=== PATIENT | male | born 1960 | race Caucasian/White ===

== ENCOUNTER 2018-08-07 17:54 | Observation (INO) | payer MEDICAID ==
[~2018-08-07] VITALS: Ht 175.3 cm; Wt 111.6 kg
--- NOTE | ~2018-08-07 | HEMODYNAMI ---
PATIENT:ABHILASH PEREZ MEDICAL RECORD: [id number] : 62 LOCATION:[facility] [place] D[facility]# [id number] ADMISSION DATE: 08/07/18 Generatedon:08/08/201813:05 Patient name: ABHILASH PEREZ Patient #: [id number] SSN: : 1960 Date of study: 08/08/2018 Page: Of Hemodynamic Procedure Report Patient Data Patient Demographics Procedure consent was obtained First Name: ABHILASH Gender: Male Last Name: CHRIS : 1960 Middle Initial: CASSIDY Age: 58 year(s) Patient #: [id number] Race: Unknown Additional ID: [id number] Contact details [address]: [address] [place] [address] State: [place] City: [place] Zip code: [address] Past Medical History Allergies: No known allergies Admission Admission Data Admission Date: 08/07/2018 Admission Time: 19:25 Admit Source: Other Room #: D.2115 Lab Results Lab Result Date: 08/08/2018 Lab Result Time: 6:00 Biochemistry Name Units Result Min Max BUN mg/dl 14 --(--*-)-- 7 18 Creatinine mg/dl 0.1 *-(----)-- 0.6 1.3 CBC Name Units Result Min Max Hematocrit % 42.5 --(*---)-- 42 54 Hemoglobin g/dl 13.9 --(*---)-- 13.5 17.5 Procedure Procedure Types Cath Procedure Diagnostic Procedure LHC LHC w/Coronaries Peripheral Cath Diagnostic Procedure Bilingual Recruiter Peripheral Procedures 4-Vessel Bilateral Carotid Arteriogram Procedure Description Procedure Date Procedure Date: 08/08/2018 Procedure Start Time: 12:50 Procedure End Time: 12:59 Procedure Staff Name Function Getachew Alcaraz MD Performing Physician Fausto Driscoll RT Monitor Neeraj López RT Scrub Otto Doss RN Nurse Procedure Data Cath Procedure Fluoroscopy Diagnostic fluoroscopy Total fluoroscopy Time: 2 time: 2 min min Diagnostic fluoroscopy Total fluoroscopy dose: 520 dose: 520 mGy mGy Contrast Material Contrast Material Type Amount (ml) Isovue 300 84 Entry Location Entry Primary Successful Side Size Upsize Upsize Entry Closure Succes sful Closure Location (Fr) 1 (Fr) 2 (Fr) Remarks Device Remarks Femoral Right 5 Fr Exoseal artery Estimated blood loss: 5 ml Diagnostic catheters Device Type Used For End Catheter Placement MULTIPACK JL 4.0 5Fr Procedure catheter MULTIPACK 3DRC 5Fr Procedure catheter MULTIPACK Pigtail 5 Fr Procedure catheter Procedure Complications No complications Procedure Medications Medication Administration Route Dosage 0.9% NaCl I.V. 100 ml/hr Oxygen etCO2 Nasal cannula 2 l/min Heparin Flush Bag added to field 2 bags (1000units/500ml NS) Lidocaine 2% added to field 20 Versed I.V. 2 mg Fentanyl I.V. 100 mcg Hemodynamics Rest HGB: 13.9 (g/dl) Heart Rate: 88 (bpm) Pressure Samples Time Site Value (mmHg) Purpose Heart Use Rate(bpm) 12:56 LV 127/11,17 Snapshot 86 12:56 AO 149/70(102) Pullback 82 12:56 LV 127/19,30 Pullback 82 Gradients Valve Time Site 1 Site 2 Mean SEP/DFP Peak To Heart Use (mmHg) (sec/min) Peak Rate (mmHg) (bpm) Aortic 12:56 LV AO 0 14 0 82 127/19,30 149/70(102) Calculations Valve P-P Mean Valve Index Valve Source Name Gradient Area Flow (cm2) Aortic 0 0 0 0 Snapshots Pre Cath Intra NCS Post Cath Vital Signs Time Heart Resp SPO2 etCO2 NIBP (mmHg) Rhythm Pain Sedation Rate (ipm) (%) (mmHg) Status Level (bpm) 12:40:22 84 26 99 39.9 156/99(120) NSR 0 (11) 10(A) , No pain 12:44:41 88 12 96 39.9 151/83(125) NSR 0 (11) 10(A) , No pain 12:48:51 95 15 96 42.9 145/92(120) NSR 0 (11) 10(A) , No pain 12:53:02 91 17 95 0.7 124/85(105) NSR 0 (11) 9(A) , No pain 12:57:14 83 16 96 45.2 142/84(104) NSR 0 (11) 9(A) , No pain Medications Time Medication Route Dose Verified Delivered Reason Notes Eff ectiveness by by 12:43:47 0.9% NaCl I.V. 100 Otto Otto Per ml/hr Selam Doss physician RN RN 12:43:57 Oxygen etCO2 2 Otto Otto for low 02 Nasal l/min Lorigan Lorigan sats cannula RN RN 12:44:08 Heparin Flush added 2 Otto Otto used for Bag to bags Lorigan Selam procedure (1000units/500ml field RN RN NS) 12:44:25 Lidocaine 2% added 20ml Otto Otto for local to vial Lorigan Lorigan anesthetic field RN RN 12:48:22 Versed I.V. 2 mg Otto Otto for Lorigan Lorigan sedation RN RN 12:48:30 Fentanyl I.V. 100 Otto Otto for mcg Lorigan Lorigan sedation RN pet stylist Log Time Note 12:12:47 Informed consent obtained and on chart 12:12:50 Admit Source: Other 12:13:04 Diagnostic Cath status Elective 12:13:06 Time tracking: Regular hours (M-F 7:00 - 5:00) 12:13:11 Plan of Care:Hemodynamics will remain stable., Cardiac rhythm will remain stable., Comfort level will be maintained., Respiratory function will remain adequate., Patient/ family verbilizes understanding of procedure., Procedure tolerated without complication., Recovers from procedure without complications.. 12:13:24 H&P Date Dictated: 08/07/2018 Within 30 days and on chart.. 12:14:57 Lab Result : BUN 14 mg/dl 12:14:57 Lab Result : Hemoglobin 13.9 g/dl 12:14:57 Lab Result : Creatinine 0.1 mg/dl 12:14:57 Lab Result : Hematocrit 42.5 % 12:14:59 Lab results completed and on chart. 12:18:04 Otto Doss RN sent for patient. Start room use. 12:32:39 Patient received from Med II to CCL 1 Alert and oriented. Tansferred to table in Supine position. 12:32:40 Warm blankets applied, and jenn hugger turned on for patient comfort. 12:32:40 Correct patient and procedure confirmed by team. 12:32:41 ECG and BP/O2 sat monitors applied to patient. 12:39:14 Vital chart was started 12:43:47 0.9% NaCl 100 ml/hr I.V. was administered by Otto Doss RN; Per physician; 12:43:57 Oxygen 2 l/min etCO2 Nasal cannula was administered by Otto Doss RN; for low 02 sats; 12:44:08 Heparin Flush Bag (1000units/500ml NS) 2 bags added to field was administered by Otto Doss RN; used for procedure; 12:44:25 Lidocaine 2% 20ml vial added to field was administered by Otto Doss RN; for local anesthetic; 12:46:14 Baseline sample Acquired. 12:46:18 Rhythm: sinus rhythm 12:46:19 Full Disclosure recording started 12:46:21 Pre-procedure instructions explained to patient. 12:46:22 Pre-op teaching completed and patient verbalized understanding. 12:46:24 Family in patients room. 12:46:25 Patient NPO since Midnight. 12:46:30 Patient allergic to No known allergies 12:46:32 Is the patient allergic to Iodine/contrast media? No. 12:46:33 Is patient on blood thinner?No 12:46:34 Patient diabetic? No. 12:46:37 Previous problem with sedation/anesthesia? No ? 12:46:38 Snore? Yes 12:46:39 Sleep apnea? No 12:46:39 Deviated septum? No 12:46:42 Opens mouth fully? Yes 12:46:43 Sticks out tongue? Yes 12:46:45 Airway obstruction? No ? 12:46:46 Dentures? No ? 12:46:49 Pre procedure: right dorsailis pedis pulse 2+ Normal; easily identifiable; not easily obliterated 12:46:51 Patient pain scale 0/10 ?. 12:46:58 IV patent on arrival in right forearm with 0.9% NaCl at [facility]. 12:47:02 Right groin area was prepped with chlora-prep and draped in sterile fashion 12:47:03 Alarms reviewed by R. N. 12:47:03 Sharps counted by scrub and verified by R.N. 12:47:05 Use device set Femoral Dx 12:47:07 ACIST Syringe (72902) opened to sterile field. 12:47:07 Bag Decanter (2001S) opened to sterile field. 12:47:08 Medline Cath Pack ([id number]) opened to sterile field. 12:47:08 ACIST Hand Control (38145) opened to sterile field. 12:47:09 ACIST Manifold (64150) opened to sterile field. 12:47:10 Tegaderm 4 x 4 (1626W) opened to sterile field. 12:47:10 SHEATH 5FR Hinton (NIB120) opened to sterile field. 12:47:12 DIAGNOSTIC Multipack 5Fr catheter set (FW7108) opened to sterile field. 12:47:12 DIAGNOSTIC WIRE .035 260cm J wire (970938) opened to sterile field. 12:47:21 Physician arrived 12:47:21 --------ALL STOP TIME OUT------ 12:47:22 Final Timeout: patient, procedure, and site verified with staff and physician. All members of the team are in agreement. 12:47:23 Right groin site verified by team. 12:47:26 Maximum allowable Isovue 300 dose 300ml. Physician notified. (300ml for normal creatinines. For patients with creatinine of 1.7 or higher multiply weight(kg) x 5 divided by creatinine.) 12:47:34 Fire Safety Assessment: A--An alcohol-based skin anteseptic being used preoperatively., C--Open oxygen or nitrous oxide is being used., D--An ESU, laser, or fiber-optic light is being used. 12:47:36 Physical assessment completed. ASA score P 2 - A patient with mild systemic disease as per Getachew Alcaraz MD. 12:47:39 Sedation plan: IV Moderate Sedation Medication:Versed, Fentanyl 12:48:22 Versed 2 mg I.V. was administered by Otto Doss RN; for sedation; 12:48:30 Fentanyl 100 mcg I.V. was administered by Otto Doss RN; for sedation; 12:50:12 Procedure started. 12:50:14 Local anesthetic to right femoral artery with Lidocaine 2% by Getachew Alcaraz MD.INITIAL ACCESS ONLY 12:50:20 A 5 Fr sheath was inserted into the Right Femoral artery 12:50:26 Zero performed for pressure channel P1 12:50:53 Zero performed for pressure channel P1 12:51:47 A MULTIPACK JL 4.0 5Fr catheter was advanced over the wire and used for Procedure. 12:52:28 Catheter exchanged over wire. 12:52:35 A MULTIPACK 3DRC 5Fr catheter was advanced over the wire and used for Procedure. 12:53:18 RCA angiography performed. 12:53:46 Left carotid angiography performed. 12:53:59 Right carotid angiography performed. 12:55:18 Catheter exchanged over wire. 12:55:22 A MULTIPACK Pigtail 5 Fr catheter was advanced over the wire and used for Procedure. 12:55:58 Procedure type changed to Cath procedure, Diagnostic procedure, LHC, LHC w/Coronaries, Peripheral Cath Diagnostic Procedure, Bilingual Recruiter Peripheral Procedures, 4-Vessel, Bilateral Carotid Arteriogram 12:56:25 LV gram done using ROGERS 12:56:27 Injector settings: Ml/sec: 10, Volume: 20, 12:56:29 LV hemodynamics recorded. 12:56:36 EF : 55 % 12:57:45 Catheter removed. 12:57:46 EXOSEAL 5Fr (EX500) opened to sterile field. 12:57:55 Sheath removed intact; hemostasis achieved with Exoseal to the Right Femoral artery. 12:57:57 Procedure ended.(Physican Out) 12:58:12 Fluoroscopy time 02.00 minutes. 12:58:16 Fluoroscopy dose: 520 mGy 12:58:16 Flurop Dose total: 520 12:58:21 Contrast amount:Isovue 300 84ml. 12:58:22 Sharps counted by scrub and verified by R.N. 12:58:27 Insertion/operative site no bleeding no hematoma. 12:58:31 Post-op/insertion site Right Femoral artery dressed using a 4 x 4 and Tegaderm. 12:58:34 Post right femoral artery:stable, soft, clean and dry 12:58:36 Post Procedure Pulses reassessed and unchanged 12:58:39 Post-procedure physical assessment completed. ASA score P 2 - A patient with mild systemic disease as per Getachew Alcaraz MD. 12:58:41 Post procedure rhythm: unchanged. 12:58:47 Estimated blood loss: 5 ml 12:58:49 Post procedure instruction explained to patient.Patient verbalizes understanding. 12:58:50 Patient needs reinforcement of post procedure teaching. 12:58:50 Procedure and supply charges have been captured, reviewed, submitted and are correct. 12:59:23 Procedure Complication : No complications 12:59:25 Vital chart was stopped 12:59:26 See physician's report for complete and final results. 12:59:29 Report given to Pre/Post Procedure Room. 12:59:34 Patient transfered to Pre/Post Procedure Room with Stretcher. 12:59:37 Procedure ended. 12:59:37 Full Disclosure recording stopped 12:59:41 End room use (Document Last) Device Usage Item Name Manufacture Quantity Catalog Hospital Part Current Minimal L ot# / Number Charge Number Stock Stock Serial# Code ACIST Acist 1 31867 890967 019263 420072 20 Syringe Medical (45366) Systems Inc Bag Microtek 1 2001S 549319 54651 230923 5 Decanter Medical Inc. () Medline Medline 1 [id number] 038837 34746 616677 5 Cath Pack ([id number]) ACIST Hand Acist 1 96501 537672 707857 767495 5 Control Medical (66587) Systems Inc ACIST Acist 1 10515 854086 455161 458025 5 Manifold Medical (24419) Systems Inc Tegaderm 4 3M 1 1626W 207632 848040 235418 5 x 4 (1626W) SHEATH 5FR Terumo 1 NGA730 236287 841501 065808 5 Hinton (ELC112) DIAGNOSTIC Cardinal 1 NR0859 067823 04068 066928 30 Multipack Health 5Fr catheter set (XU0007) DIAGNOSTIC St Evans 1 113118 397846 000853 453995 30 WIRE .035 260cm J wire (526282) MULTIPACK Cardinal 1 901971 5 JL 4.0 5Fr Health catheter MULTIPACK Cardinal 1 699004 5 3DRC 5Fr Health catheter MULTIPACK Cardinal 1 023746 5 Pigtail 5 Health Fr catheter EXOSEAL 5Fr Cardinal 1 EX500 423402 052654 789765 10 (EX500) Health Signature Audit Ralph Stage Time Signature Unsigned Intra-Procedure 08/08/2018 Fausto Driscoll 1:04:56 PM RT(R) Signatures Monitor : Fausto Driscoll RT Signature : Date : Time : [facility] [address] [place] [address]
[2018-08-07 18:59] LABS: MAGNESIUM - SERUM 2.1 mg/dL (1.8-2.4)
[2018-08-07 19:00] VITALS: BP 120/76
[2018-08-07 19:11] LABS: TROPONIN-I < 0.017 ng/mL (0.000-0.060)
[2018-08-07 19:16] LABS: HEMATOCRIT 45.4 % (42.0-54.0); HEMOGLOBIN 15.2 g/dL (13.5-17.5); MCH 28.6 pg (26.0-34.0); MCHC 33.5 g/dL (31.0-37.0); MCV 85.5 fL (80.0-100.0); MEAN PLATELET VOLUME 10.2 fL (7.4-10.4); RBC 5.31 10x6/uL (4.20-6.10); RDW 14.1 % (11.5-14.5); WBC 12.3 10x3/uL (4.8-10.8)
[2018-08-07 19:24] LABS: APTT 30.6 SECONDS (22.8-39.4); INR 1.06 (0.85-1.17); PROTIME 13.3 SECONDS (11.6-15.0)
[2018-08-07 19:37] VITALS: BP 120/71
--- NOTE | 2018-08-07 21:00 | NUR ---
PATIENT ARRIVED FROM ER WITH HEPARIN DRIP INFUSING. PATIENT ALERT AND ORIENTED. RESPIRATIONS ARE EVEN AND UNLABORED. NO S/S OF DISTRESS. NO C/O PAIN. DENIES NEEDS AT THIS TIME. CALL LIGHT WITHIN REACH. WILL CPOC.
[2018-08-07] MEDS ORDERED: FISH OIL 1,0001 CA1 PO (22:23)
[2018-08-07] MEDS ORDERED: SAW PALMETTO450 MG PO (22:24)
[2018-08-07] MEDS ORDERED: NAPROXEN250 MG PO (22:25)
[2018-08-07 23:29] LABS: CREATINE KINASE 125 UL (21-232)
[2018-08-07 23:30] LABS: TROPONIN-I < 0.017 ng/mL (0.000-0.060)
[2018-08-08] VITALS: BP 129/82
[2018-08-08 00:40] LABS: HEMATOCRIT 42.5 % (42.0-54.0); HEMOGLOBIN 13.9 g/dL (13.5-17.5); MCHC 32.7 g/dL (31.0-37.0); MCV 85.7 fL (80.0-100.0); MEAN PLATELET VOLUME 10.1 fL (7.4-10.4); RBC 4.96 10x6/uL (4.20-6.10); RDW 14.2 % (11.5-14.5); WBC 11.8 10x3/uL (4.8-10.8)
[2018-08-08 02:02] VITALS: BP 135/88; BMI 36.4
--- NOTE | 2018-08-08 03:56 | NUR ---
PATIENT RESTING COMFORTABLY IN BED. RESPIRATIONS ARE EVEN AND UNLABORED. NO S/S OF DISTRESS. FAMILY AT BEDSIDE. CALL IGHT WITHIN REACH. WILL CPOC.
[2018-08-08 04:00] VITALS: BP 126/82
[2018-08-08 05:36] LABS: CKMB 1.3 U/L (0.0-3.6); CREATINE KINASE 119 UL (21-232); TROPONIN-I < 0.017 ng/mL (0.000-0.060)
[2018-08-08 07:13] LABS: CREATINE KINASE 114 UL (21-232)
[2018-08-08 07:21] LABS: TROPONIN-I < 0.017 ng/mL (0.000-0.060)
[2018-08-08 08:44] LABS: BASOPHILS 0.2 % (0-2); EOSINOPHILS 1.5 % (0-7); HEMATOCRIT 42.3 % (42.0-54.0); HEMOGLOBIN 13.9 g/dL (13.5-17.5); IMMATURE GRANULOCYTES 0.2 % (0-5); LYMPHOCYTES 25.1 % (15-50); MCH 28.4 pg (26.0-34.0); MCHC 32.9 g/dL (31.0-37.0); MCV 86.3 fL (80.0-100.0); MEAN PLATELET VOLUME 10.7 fL (7.4-10.4); MONOCYTES 9.5 % (2-11); NEUTROPHILS 63.5 % (40-80); PLATELET COUNT 295 10x3/uL (130-400); RDW 14.3 % (11.5-14.5)
[2018-08-08 08:45] LABS: CALC OSMOLALITY 285 mosm/kg (275-300); CALCIUM 8.6 mg/dL (8.5-10.1); CARBON DIOXIDE 25.2 mmol/L (21.0-32.0); CHLORIDE - SERUM 107 mmol/L (98-107); GLUCOSE 105 mg/dL (74-106); POTASSIUM - SERUM 4.2 mmol/L (3.5-5.1); SODIUM 143 mmol/L (136-145); UREA NITROGEN 14 mg/dL (7-18); WBC 8.7 10x3/uL (4.8-10.8); eGFR NON AFRICAN AMERICAN 82 mL/min (90-120)
--- NOTE | 2018-08-08 09:04 | NUR ---
CONSENTS SIGNED FOR [facility]. WILL CONT. PLAN OF CARE.
--- NOTE | 2018-08-08 12:24 | NUR ---
PRE-OPS GIVEN. TO LABORATORY ANIMAL CARETAKER BY BED.
[2018-08-08 13:04] VITALS: Ht 175.3 cm; Wt 111.6 kg
--- NOTE | 2018-08-08 13:31 | NUR ---
1324 RECEIVED PT FROM COCKTAIL SERVER. PT IS ALERT AND DENIES ANY C/O. DRESSING IS CDI TO RIGHT GROIN, AREA IS SOFT AND NONTENDER. PEDAL PULSES PALPABLE. VSS. RESP WITH EASE ON ROOM AIR. FAMILY AT BEDSIDE, CALL LIGHT IN REACH.
--- NOTE | 2018-08-08 14:17 | NUR ---
1340 PT ALERT, DENIES ANY C/O. DRESSING CDI TO RIGHT GROIN, PEDAL PULSES PALPABLE. HOB IS FLAT, FAMILY AT BEDSIDE. 1400 PT EDUARDO PO FLUIDS WITH NO C/O. DRESSING CDI, PEDAL PULSES PALPABLE. NSR, DENIES ANY C/O CHEST PAIN. FAMILY AT BEDSIDE. 1417 HOB ELEVATED 30 DEGREES, DRESSING CDI, PEDAL PULSES PALPABLE. PT IS ALERT AND DENIES ANY C/O.
--- NOTE | 2018-08-08 15:39 | NUR ---
1440 HOB FULLY ELEVATED. PT EDUARDO SANDWICH AND PO FLUIDS WITH NO C/O NAUSEA. DRESSING REMAINS CDI, PEDAL PULSES PALPABLE. 1500 DC INSTRUCTIONS HAVE BEEN REVIEWED WITH PT WHO VERBALIZES UNDERSTANDING. IV DC'D AND PT IS DRESSING FOR DC WITH ASSIST.
--- NOTE | 2018-08-08 16:51 | NUR ---
1520 PT HAS AMBULTED TO THE BATHROOM AND VOIDED QS. DENIES ANY C/O. IS SITTING UP IN BED, WATCHING TV, AWAITING HIS RIDE TO ARRIVE.
--- NOTE | 2018-08-08 16:51 | NUR ---
1600 PT'S RIDE IS HERE, PT IS ALERT AND DENIES ANY C/O. PT HAS ALL PERSONAL BELONGINGS AND DC INSTRUCTIONS.. PT ESCORTED TO PRIVATE AUTO VIA WC BY NURSE WITH FRIEND DRIVING HIM HOME.
--- NOTE | 2018-08-10 10:39 | OP ---
PATIENT NAME: ABHILASH PEREZ MEDICAL RECORD: [id number] :62 LOCATION:[facility] ADMISSION DATE:08/07/18 SURGEON: MADELINE MOSES MD DATE OF OPERATION: 08/08/2018 PROCEDURE: Left heart catheterization, selective coronary angiography, right femoral artery approach. CATHETERS: A 5-Indonesian sheath, 5/4 left and right Thalia, 5/4 pig. The procedure was well tolerated. The patient was returned to the lew. Sheath was removed. ExoSeal device was placed. FINDINGS: Left ventriculography in 30-degree ROGERS view: Normal wall motion, normal systolic function. CORONARY ANATOMY: LEFT MAIN: Left main large vessel, free of disease. LAD: A large vessel, free of disease. CIRCUMFLEX: Codominant system, free of disease. RIGHT CORONARY ARTERY: Codominant, large vessel, free of disease. At the end of the left heart catheterization, the right coronary catheter was withdrawn proximal to the right common carotid, which was selectively engaged, smooth-walled vessel, free of disease. Right internal carotid is smooth-walled vessel, free of disease. Right external carotid is smooth-walled vessel, free of disease. Catheter was withdrawn to the left internal carotid, which was selectively engaged. This is smooth-walled vessel, free of disease. Left internal carotid is smooth-walled vessel, free of disease. Left external carotid is smooth-walled vessel, free of disease. TRANSINT:[id number] Voice Confirmation ID: [id number] DOCUMENT ID: [id number] MADELINE MOSES MD at 1039 CC: [id number] DICTATION DATE: 08/08/18 1303 LEGAL TRANSCRIPTIONIST: 08/08/18 1406 DIS IN 08/08/18 [facility] [address] [place] [id number]
--- NOTE | 2018-08-10 10:39 | CN ---
PATIENT NAME:MAHENDRA PEREZ MEDICAL RECORD: [id number] : 62 LOCATION:[facility] ADMIT DATE: 08/07/18 ACCOUNT: [id number] CONSULTING PHYSICIAN: MADELINE MOSES MD REFERRING PHYSICIAN: HOMER MTZ M.D. DATE OF CONSULTATION: 08/08/2018 HISTORY: Mahendra Perez is a 58-year-old gentleman with no known history of coronary artery disease, travelling to work yesterday had an onset of chest pressure and tightness radiating to the left arm, initially presented to his primary care's office, was promptly started on oxygen, given nitroglycerin, had relief of pain, but then developed left-sided weakness. Reports some visual changes, though not a classic amaurosis, who presented to [place] ER. Pain relieved with nitro paste, was transferred here for further evaluation. Had recurrence of pain. He received second nitroglycerin here and developed hypotension and bradycardia. This was a sinus mechanism. We are asked to see him concerning his cardiovascular status. PAST MEDICAL HISTORY: Includes history of osteoarthritis. ALLERGIES: None known. SOCIAL HISTORY: , lives with [place]. He is a nonsmoker. Does attempt to exercise on a fairly regular basis. REVIEW OF SYSTEMS: The patient reports easy bruising but reports no swollen glands. The patient reports no fever, no night sweats, no significant weight gain, no significant weight loss. No significant exercise tolerance. The patient reports no dry eyes, no irritation, no vision change. Patient reports no difficulty hearing and no ear pain. Patient reports no frequent nose bleeds or nose and sinus problems. Patient reports on arm pain on exertion. No shortness of breath while lying down. No history of heart murmur. Patient reports no cough, no wheezing or coughing up blood. Patient reports no abdominal pain, no vomiting. Normal appetite. No diarrhea and not vomiting blood. No nausea and no constipation. Patient reports no incontinence. No difficulty urinating. No hematuria. No increased frequency. Patient reports no muscle aches. No weakness, no arthralgias, no back pain. No swelling of the extremities. Patient reports no abnormal mole, no jaundice, no rashes. Reports no loss of consciousness. No weakness and no numbness. No seizures, dizziness, or headaches. The patient reports no depression, no sleep disturbance, feeling safe in a relationship and no alcohol abuse. Patient reports on fatigue. Reports no runny nose or sinus pressure. No itching, no hives, and no frequent sneezing. PHYSICAL EXAMINATION: GENERAL: A pleasant gentleman, in no acute distress, appears stated age. VITAL SIGNS: Blood pressure 126/82, pulse 75 and regular. HEENT: Normocephalic and atraumatic. NECK: No bruits are noted. HEART: Regular, questionable S4 gallop. LUNGS: Good air excursion. ABDOMEN: Soft and nontender. EXTREMITIES: Pulses are well preserved, 2+. There is no edema. NEUROLOGIC: Grossly intact. CONSULT REPORT [id number] MAHENDRA PEREZ DIAGNOSTIC DATA: ECG without acute change. IMPRESSION: Acute coronary syndrome, visual changes, left-sided weakness, somewhat concerning for TIA symptomology. PLAN: Plan for catheterization with 4-vessel arteriography in the same setting. TRANSINT:[id number] Voice Confirmation ID: [id number] DOCUMENT ID: [id number] MADELINE MOSES MD at 1039 CC: [id number] DICTATION DATE: 08/08/18 0832 FIELD TEST ENGINEER: 08/08/18 0902 DIS IN 08/08/18 [facility] [address] [place] [address]
== END 2018-08-08 16:00 | disposition home or self-care (01) ==
LOC: D.ER 17:54 → D.M2 19:25 → OBSVTIME 19:26 → D.CLR 08-08 13:20
PROVIDERS: Emergency Medicine; Family Medicine; Internal Medicine Interventional Cardiology; ADMIT Emergency Medicine; ATTEND Internal Medicine Cardiovascular Disease
DX: I24.9 Acute ischemic heart disease, unspecified (principal); R53.1 Weakness; H53.9 Unspecified visual disturbance